=== PATIENT | male | born 1975 | race Asian ===

== ENCOUNTER 2022-12-06 12:47 | Emergency (ER) | payer MEDICAID ==
[~2022-12-06] VITALS: Ht 167.6 cm; Wt 65.0 kg
[2022-12-06 12:53] VITALS: TEMP 98
[2022-12-06 15:46] VITALS: BP 124/86; PULSE 64; RESP 18; O2SAT 98
== END 2022-12-06 15:47 | disposition home or self-care (01) ==
LOC: ER 12:48
DX: R42 Dizziness and giddiness (principal)
CPT/HCPCS: 99281

== ENCOUNTER 2024-09-21 09:21 | Emergency (ER) | payer MEDICAID ==
[~2024-09-21] VITALS: Ht 162.6 cm; Wt 61.4 kg
[2024-09-21] MEDS: HYDROcodone/acetaminophen 10/325mg tab PO STA (09:33)
--- NOTE | 2024-09-21 09:34 | Physician Documentation ---
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 HPI 49-year-old male presenting with a fall from a ladder that occurred about 30 minutes prior to arrival. Patient states that he lost his footing and fell. He broke his his fall with his left wrist area and then subsequently hit his head on the ground as well. He denies losing any consciousness. He states that he has severe pain in his left wrist and that it appears a little deformed Denies any nausea, vomiting, blurry vision, confusion or any other associated symptoms. Tetanus within 5 Years?: No Medication Reconciliation Allergies: Uncoded Allergies: FRUIT (Allergy, Unknown, 12/06/22) Scheduled Ibuprofen (Ibuprofen), 1 TAB PO Q8H Scheduled PRN Hydrocodone Bit/Acetaminophen (Hydrocodone-Apap 10-325 Tablet), 1 TAB PO QID PRN PRN for pain Physical Exam Vital Signs: Temperature: 97.8, Source: Oral, Heart Rate: 85, Respiratory Rate: 18, BP: 138/91, Pulse Oximetry: 95, Weight: 61.360 Oxygen Flow Rate: 0 Physical Exam I have reviewed the triage vitals. CONST: Well developed and well nourished. In no acute distress HENT: Head Atraumatic. There is a 2 cm laceration over the left eyebrow, simple, diagonal EYES: Pupils are equal, round and reactive to light. Normal conjunctiva NECK: Normal range of motion. Supple. CARDIO: Normal rate and regular rhythm. No murmurs, rubs, or gallops. S1, S2. PULM/CHEST: No respiratory distress. Lungs clear to auscultation. No wheeze ABD: Soft and nontender. Nondistended. Bowel sounds normal. No guarding. : Exam deferred MSK: Left wrist exhibits slight deformity. Palpation and attempted range of motion are extremely painful. NEURO: Alert and oriented to person, place and time. Moving all extremities SKIN: Warm and dry. PSYCH: Normal mood and affect. Good eye contact. Procedures Splinting Location: Left forearm Hand-Made Type: fiberglass Splint: sugar-tong Pre-Proc Neuro Vasc Exam: normal Post-Proc Neuro Vasc Exam: normal Splint Placed By: diet supervisor Tolerated Procedure Well?: yes, no complications Joint Reduction : Joint Reduction Site: Left distal radius Reduction By: myself Conscious Sedation: Yes Medications/Dose: See moderate sedation note Pre-Procedure NV Exam: within normal limits Post-Procedure NV Exam: within normal limits Post Reduction Film: good alignment, other (Reduction of left distal radius fracture) Tolerated Procedure Well?: yes, no complications Procedure Note A left distal radius displaced and comminuted fracture was reduced with traction and manipulation. Finger trap was used afterwards to complete the reduction. Postreduction x-rays exhibited reduction of the fracture and near normal anatomical alignment. Moderate Sedation : Date of Procedure: Sep 21, 2024 Chief Complaint: Left wrist pain See Completed H&P Dated: Sep 21, 2024 Pulmonary Assessment: Unremarkable Neurological Assessment: Unremarkable Cardiovascular Assessment: Unremarkable Other Systems: Unremarkable Hx of sedation difficulty?: No ASA Class: I-normal healthy Mallampati Score/Visibility of: Class 1-full Informed Consent Informed consent was obtained. Risks and benefits were discussed. Medication Used: Versed (10 mg), Fentanyl (100 mg) Staff Present: primary nurse, respiratory therapy assistant, orthopedic physician assistant Monitoring: cardiac rehab nurse, NIPB, patient on oxygen via N/C, suction ready, crash cart at bedside, BVM ready Tolerated Procedure Well?: yes, no complications Duration of Procedure (min): 30 Progress Results/Orders Results/Orders Orders - DAYNA LEWIS MD Wrist, Complete (3vw Min) (09/21/24 09:23) Ct Head (09/21/24 10:30) Ct Cervical Spine (09/21/24 10:30) Wrist, Complete (3vw Min) (09/21/24 11:29) Wrist,Limited (Ap/Lat) (09/21/24 ) Completed Orders - DAYNA LEWIS MD Wrist, Complete (3vw Min) (09/21/24 09:23) Hydrocodone/Apap 10/325 (Wells 10/325mg (09/21/24 09:29) Ct Head (09/21/24 10:30) Ct Cervical Spine (09/21/24 10:30) Fentanyl/Pf (Fentanyl 0.05 Mg/Ml Syringe (09/21/24 10:15) Normal Saline 1000ml (Sodium Chloride 10 (09/21/24 10:15) Midazolam 5 Mg/Ml 2ml Inj (Versed 5 Mg/M (09/21/24 11:05) Fentanyl/Pf (Fentanyl 0.05 Mg/Ml Syringe (09/21/24 11:20) Fentanyl/Pf (Fentanyl 0.05 Mg/Ml Syringe (09/21/24 11:21) Wrist, Complete (3vw Min) (09/21/24 11:29) Wrist,Limited (Ap/Lat) (09/21/24 ) Lidocaine 1% W/Epi 1:200,000 (Xylocaine (09/21/24 12:34) Lidocaine 1% W/Epi 1:100,000 (Xylocaine (09/21/24 12:40) EKG/XRAY/CT/US/VASC/MRI Bone/Soft Tissue X-Ray (Ext.) : Additional Comment CLINICAL INDICATION: post reduction s/p radius fx TECHNIQUE: 2 radiographic views of the left wrist were obtained. Comparison: None FINDINGS/IMPRESSION: Intra-articular comminuted fracture of the distal radius. Ulnar styloid process fracture. ICAL INDICATION: LT.WRIST PAIN POST REDUCTION TECHNIQUE: 2 radiographic views of the left wrist were obtained. Comparison: DI WRIST, COMPLETE (3VW MIN) on DOS: 09/21/24 FINDINGS/IMPRESSION: Comminuted intra-articular fracture of the distal radius and ulnar styloid process fracture with improved alignment of the distal radius compared to prior exam. : CT CT CERVICAL SPINE INDICATION: trauma EXAM DATE: 09/21/2024 10:41 AM COMPARISON: None TECHNIQUE: Multiple axial CT images of the cervical spine were obtained using bone algorithm. Axial and coronal reformatting was done. Bone and soft tissue windows were reviewed. Radiation Dose Information: CT Dose: CTDI volume is 22 mGy. Dose-length product is 513 mGy*cm FINDINGS: Patient is rotated during time of scan. The cervical alignment is intact. No acute cervical spine fracture is identified. The vertebral body heights are intact. No suspicious osseous lesions are identified. Mild degenerative changes throughout the cervical spine. There is no prevertebral soft tissue swelling. IMPRESSION: 1. No evidence of acute cervical spine fracture or traumatic malalignment. CT : Impression EXAM: CT CT HEAD INDICATION: trauma TECHNIQUE: CT of the head without intravenous contrast. Radiation Dose : 1. Head: CT Dose: CTDI volume is 68 mGy. Dose-length product is 1245 mGy*cm The dose indicators for CT are the volume Computed Tomography (CT) Dose Index (CTDIvol) and the Dose Length Product (DLP), and are measured in units of mGy and mGy-cm, respectively. These indicators are not patient dose, but values generated from the CT scanner acquisition factors. The report includes radiation exposure data for exposures received during this examination. COMPARISON: None FINDINGS: There is no evidence of acute intracranial hemorrhage, extra-axial collection, mass effect, midline shift, herniation or hydrocephalus. The ventricles, sulci and cisterns are age appropriate. The rao-white differentiation is intact. Patchy periventricular and subcortical white matter hypoattenuation is nonspecific but may be related to small vessel ischemic disease. The visualized paranasal sinuses and mastoid air cells are clear. The surrounding soft tissues and osseous structures are unremarkable. IMPRESSION: 1. No acute intracranial abnormality. Medical Decision Making Additional Comment 49-year-old male presenting after a fall where he sustained a distal radius and ulnar styloid fracture. He also sustained a laceration over his left eyebrow. The laceration was repaired-please see procedure note. The fractures were also reduced under moderate sedation-please see procedure notes. After the pro cedures the patient was stable. He was reassessed and his pain had improved. His left forearm was placed in a splint-please see procedure note. He was also given a sling and advised to keep the splint and sling on at all times. He is instructed to follow up with Orthopedics in the next 1-2 weeks and he was given a referral. Regarding his laceration he was advised to return in five days for suture removal. Patient was prescribed 30 tablets of 800 mg ibuprofen and 20 tablets of 10-325 Wells for pain. Risks and benefits of these medications was discussed and cures was checked. Patient stable and safe for discharge home. Return to the ED immediately with any worsening symptoms. Departure Disposition: 01 HOME / SELF CARE / HOMELESS Impression: Primary Impression: Radius and ulna distal fracture Additional Impression: Facial laceration Condition: Improved Discharge Instructions: Facial Laceration, Radial Fracture Additional Instructions: You fractured your left forearm bone called the radius. This was realigned in the ED and you were placed in a splint. Please keep the splints on at all times and do not remove. Please also leave your arm in the sling and do not take it out. You have been given a referral to Orthopedics and must follow up with them within the next 1-2 weeks. Please do not remove the splint and sling until you see the orthopedic surgeon. I have prescribed you medication for pain including ibuprofen and Wells. Please try to only take the ibuprofen as needed and if you must only take the Wells for severe breakthrough pain. You did also obtain a laceration over your left eye brow. This was repaired with stitches. You must return to the emergency department or go to your primary care physician or urgent care for suture removal in five days. Please return immediately to the emergency department with any worsening symptoms such as severe worsening pain, redness and swelling or drainage from your laceration or other worsening symptoms. Referrals: NO PRIMARY CARE PROVIDER (PCP) Prescriptions Hydrocodone Bit/Acetaminophen (Hydrocodone-Apap 10-325 Tablet) 10mg/325mg Tablet 1 TAB PO QID PRN PRN for pain for 5 Days, #20 TAB Prov: DAYNA LEWIS MD 09/21/24 Ibuprofen (Ibuprofen) 800 Mg Tablet 1 TAB PO Q8H for pain for 10 Days, #30 TAB 0 Refills Prov: DAYNA LEWIS MD 09/21/24 Signature Scribe Signature: 1 Attestation: 1 DAYNA LEWIS MD Sep 21, 2024 09:34
--- NOTE | 2024-09-21 10:06 | RADIOLOGY REPORT ---
CLINICAL INDICATION: Left WRIST PAIN TECHNIQUE: 3 radiographic views of the left wrist were obtained. Comparison: None FINDINGS/IMPRESSION: Intra-articular and comminuted fracture of the distal radius and ulnar styloid process.
[2024-09-21] MEDS: normal saline 1000ml 1,000 ML IV ONE (10:32)
[2024-09-21] MEDS: fentaNYL/PF 50MCG/1 ML 2ML syringe IV ONE ×2 (10:32→11:24)
--- NOTE | 2024-09-21 11:14 | RADIOLOGY REPORT ---
EXAM: CT CT CERVICAL SPINE INDICATION: trauma EXAM DATE: 09/21/2024 10:41 AM COMPARISON: None TECHNIQUE: Multiple axial CT images of the cervical spine were obtained using bone algorithm. Axial a nd coronal reformatting was done. Bone and soft tissue windows were reviewed. Radiation Dose Information: CT Dose: CTDI volume is 22 mGy. Dose-length product is 513 mGy*cm FINDINGS: Patient is rotated during time of scan. The cervical alignment is intact. No acute cervical spine fracture is identified. The vertebral body heights are intact. No suspicious osseous lesions are identified. Mild degenerative changes throughout the cervical spine. There is no prevertebral soft tissue swelling. IMPRESSION: 1. No evidence of acute cervical spine fracture or traumatic malalignment. All CT scans at this medical facility are performed using dose modulation techniques as appropriate t o a performed exam including the following: Automated exposure control was utilized; adjustment of th e MA and/or KV according to patient size; and use of iterative reconstruction technique.
--- NOTE | 2024-09-21 11:21 | RADIOLOGY REPORT ---
EXAM: CT CT HEAD INDICATION: trauma TECHNIQUE: CT of the head without intravenous contrast. Radiation Dose : 1. Head: CT Dose: CTDI volume is 68 mGy. Dose-length product is 1245 mGy*cm The dose indicators for CT are the volume Computed Tomography (CT) Dose Index (CTDIvol) and the Dose Length Product (DLP), and are measured in units of mGy and mGy-cm, respectively. These indicators are not patient dose, but values generated from the CT scanner acquisition factors. The report includes radiation exposure data for exposures received during this examination. COMPARISON: None FINDINGS: There is no evidence of acute intracranial hemorrhage, extra-axial collection, mass effect, midline s hift, herniation or hydrocephalus. The ventricles, sulci and cisterns are age appropriate. The rao-white differentiation is intact. Patchy periventricular and subcortical white matter hypoattenuation is nonspecific but may be related to small vessel ischemic disease. The visualized paranasal sinuses and mastoid air cells are clear. The surrounding soft tissues and osseous structures are unremarkable. IMPRESSION: 1. No acute intracranial abnormality. Radiation optimization: All CT scans at this facility use at least one of these dose optimization zulema hniques: automated exposure control mA and/or kV adjustment per patient size (includes targeted exam s where dose is matched to clinical indication) or iterative reconstruction.
[2024-09-21] MEDS: fentaNYL/PF 50MCG/1 ML 2ML syringe ONE (11:23)
[2024-09-21] MEDS: MIDAZolam 5mg/ml 2ml vial IV ONE (11:24)
--- NOTE | 2024-09-21 12:04 | RADIOLOGY REPORT ---
CLINICAL INDICATION: LT.WRIST PAIN POST REDUCTION TECHNIQUE: 2 radiographic views of the left wrist were obtained. Comparison: DI WRIST, COMPLETE (3VW MIN) on DOS: 09/21/24 FINDINGS/IMPRESSION: Comminuted intra-articular fracture of the distal radius and ulnar styloid process fracture with impr abner alignment of the distal radius compared to prior exam.
[2024-09-21] MEDS ORDERED: LIDOcaine 1% W/epiNEPHrine 1:200,000 10ml vial IJ STA (12:34)
[2024-09-21] MEDS: LIDOcaine 1% W/epiNEPHrine 1:100,000 20ml vial SQ ONE (12:40)
--- NOTE | 2024-09-21 12:54 | RADIOLOGY REPORT ---
CLINICAL INDICATION: post reduction s/p radius fx TECHNIQUE: 2 radiographic views of the left wrist were obtained. Comparison: None FINDINGS/IMPRESSION: Intra-articular comminuted fracture of the distal radius. Ulnar styloid process fracture.
[2024-09-21] MEDS ORDERED: HYDR-3973 PO (13:05)
[2024-09-21] MEDS ORDERED: IBUP-1986 PO (13:05)
[2024-09-21 13:39] VITALS: BP 131/86; PULSE 89; RESP 23; TEMP 98; O2SAT 95
== END 2024-09-21 13:41 | disposition home or self-care (01) ==
LOC: ER 09:21
DX: S52.592A Other fractures of lower end of left radius, initial encounter for closed fracture (principal); S52.692A Other fracture of lower end of left ulna, initial encounter for closed fracture; S01.81XA Laceration without foreign body of other part of head, initial encounter; W11.XXXA Fall on and from ladder, initial encounter; Y93.89 Activity, other specified; Y92.89 Other specified places as the place of occurrence of the external cause; Y99.8 Other external cause status
CPT/HCPCS: 25605; 70450; 72125; 73100; 73110; 96360; 99152; 99153; 99285; J2250; J3010; J7030; 94760; 96361; 96374; 96375; 96376; A4565; A4620; A6446; A6449